=== PATIENT | male | born 1995 | race Caucasian/White ===

== ENCOUNTER 2017-08-28 00:46 | Emergency (ER) | payer OTHER ==
[2017-08-28] MEDS: CLINDAMYCIN 600 MG/D5W (PMX) 50 ML IVPB (03:13)
[2017-08-28] MEDS: KETOROLAC 30 MG INJ IV (03:17)
== END 2017-08-28 04:19 | disposition home or self-care (01) ==
LOC: FTE 00:46
DX: L05.01 Pilonidal cyst with abscess (principal)
CPT/HCPCS: 96374; 96375; 99284-25

== ENCOUNTER 2017-08-30 14:58 | Emergency (ER) | payer OTHER ==
[2017-08-30] MEDS: morphine 4 MG/ML VIAL IV (16:11)
[2017-08-30] MEDS: ONDANSETRON (ODT) 4 MG TAB ODT (16:11)
[2017-08-30] MEDS: CEFTRIAXONE 2 GM/50 ML (PMX) 50 ML IVPB (16:42)
[2017-08-30] MEDS: LIDOCAINE 1% (MDV) 10 ML INJ INFIL (16:52)
== END 2017-08-30 20:30 | disposition left against medical advice (07) ==
LOC: FTE 14:58
DX: L05.01 Pilonidal cyst with abscess (principal)
CPT/HCPCS: 10060; 96374; 96375; 99284-25

== ENCOUNTER 2018-01-24 05:35 | Emergency (ER) | payer OTHER | END 2018-01-24 07:13 | disposition home or self-care (01) | LOC: FTE 05:35 | DX: J06.9 Acute upper respiratory infection, unspecified (principal); J45.909 Unspecified asthma, uncomplicated | CPT/HCPCS: 99283; Z7502 ==

== ENCOUNTER 2018-02-03 10:27 | Emergency (ER) | payer OTHER ==
[2018-02-03] MEDS: ACETAMINOPHEN 325 MG TAB PO (11:08)
[2018-02-03] MEDS: LIDOCAINE 1% (MDV) 20 ML INJ SC (11:08)
[2018-02-03] MEDS: LIDOCAINE 1% (MPF) 5 ML VIAL INJ (11:30)
== END 2018-02-03 12:00 | disposition home or self-care (01) ==
LOC: FTE 10:27
DX: L05.01 Pilonidal cyst with abscess (principal); J45.909 Unspecified asthma, uncomplicated
CPT/HCPCS: 10080; 99283-25

== ENCOUNTER 2018-04-06 14:03 | Emergency (ER) | payer OTHER | END 2018-04-06 18:02 | disposition home or self-care (01) | LOC: FTE 14:03 | DX: R21 Rash and other nonspecific skin eruption (principal); F17.210 Nicotine dependence, cigarettes, uncomplicated; J45.909 Unspecified asthma, uncomplicated | CPT/HCPCS: 99283; Z7502 ==